=== PATIENT | female | born 1975 | race African-American/Black ===

== ENCOUNTER 2019-03-18 23:26 | Emergency (ER) | payer MEDICAID ==
[2019-03-18] MEDS ORDERED: NS 0.9% 1000 ML** 1,000 ML IV ONE (23:32)
[2019-03-18] MEDS ORDERED: Labetalol IV* 5 MG/ML 20 ML VIAL IV PUSH ONE (23:33)
--- NOTE | 2019-03-18 23:34 | ED ---
Hypertension - HPI Summary HPI Summary: This pt is a 43 y/o female, with hx of HTN, presenting to [facility] via EMS c/o headache and chest pain since afternoon of 03/18/19. Pt notes she is visiting her sister and family and came to [place] from [place] on 03/13/19. She reports she forgot her antihypertensive medications in [place] and has not been taking them since then. She is unable to remember the name of her medication but starts with "N" and is 30 mg. Pt states associated symptoms of neck pain, nausea. She reports her symptoms worsened tonight and decided to call 911. Denies abd pain. EMS administered aspirin but pt vomited. EMS then gave the pt nitroglycerin and zofran. Per EMS, blood pressure of 186/90 [employer]. Pt currently reports feeling better. Pt is allergic to lisinopril. - History of Current Complaint Stated Complaint: CHEST PAIN PER EMS Hx Obtained From: Patient Hx Last Menstrual Period: last week Onset/Duration: Started Hours Ago, Still Present Timing: Lasting Hours Reported Blood Pressure Prior To Arrival: 186/90 Aggravating Factor(s): Nothing Alleviating Factor(s): Nothing Associated Signs & Symptoms: Chest Pain, Headaches, Pain - neck pain, Other: - POSITIVE: nausea and vomiting. Related Hx: Rx Non-Compliance - since 03/13/19 - Allergies/Home Medications Allergies/Adverse Reactions: Allergies Allergy/AdvReac Type Severity Reaction Status Date / Time lisinopril Allergy Severe Swelling Verified 03/18/19 23:39 Home Medications: Home Medications Aspirin 325 MG TAB* 325 mg PO DAILY 03/18/19 [History Confirmed 03/18/19] PMH/Surg Hx/FS Hx/Imm Hx Endocrine/Hematology History: Denies: Hx Anticoagulant Therapy, Hx Diabetes, Hx Thyroid Disease Cardiovascular History: Reports: Hx Hypertension Respiratory History: Denies: Hx Asthma, Hx Chronic Obstructive Pulmonary Disease (COPD) GI History: Denies: Hx Ulcer Infectious Disease History: Denies: Hx Hepatitis, Hx Human Immunodeficiency Virus (HIV), Traveled Outside the [place] in Last 30 Days - Family History Known Family History: Negative: Cardiac Disease, Hypertension, Diabetes - Social History Alcohol Use: None Substance Use Type: Reports: None Smoking Status (MU): Never Smoked Tobacco Review of Systems Negative: Fever, Chills Positive: Chest Pain Positive: Vomiting, Nausea. Negative: Abdominal Pain Musculoskeletal: Other - POSITIVE: neck pain Positive: Headache All Other Systems Reviewed And Are Negative: Yes Physical Exam - Summary Physical Exam Summary: Appearance: Well-nourished, Anxious appearing lying on the stretcher in no acute distress. Skin: Warm, dry, no obvious rash Eyes: sclera anicteric, no conjunctival pallor ENT: mucous membranes moist, pharynx appears normal Neck: Supple, nontender Respiratory: Clear to auscultation, no signs of respiratory distress Cardiovascular: Normal S1, S2. No murmurs. Normal distal pulses in tibial and radial bilaterally. Abdomen: Soft, nontender, normal active bowel sounds present Musculoskeletal: Normal, Strength/ROM Intact Neurological: A&Ox3, awake and alert, mentation is normal, speech is fluent and appropriate Psychiatric: affect is normal, does not appear anxious or depressed Triage Information Reviewed: Yes Vital Signs Reviewed: Yes - [place] Coma Scale Best Eye Response: 4 - Spontaneous Best Motor Response: 6 - Obeys Commands Best Verbal Response: 5 - Oriented Coma Scale Total: 15 Diagnostics - Laboratory Result Diagrams: 03/18/19 23:44 03/18/19 23:44 Lab Statement: Any lab studies that have been ordered have been reviewed, and results considered in the medical decision making process. - CT Brain CT CT Interpretation Completed By: Radiologist Summary of CT Findings: IMPRESSION: No acute intracranial findings or hemorrhage. Dr. Najera has reviewed this report. - EKG 23:33 Cardiac Rate: NL - at 70 bpm EKG Rhythm: Sinus Rhythm Summary of EKG Findings: Sinus rhythm at 70 bpm. Probable left ventricular hypertrophy. Normal EKG otherwise. Hypertension Course/Dx - Course Assessment/Plan: Pt is a 43 y/o female, with hx of HTN, presenting to [facility] via EMS c/o headache and chest pain since afternoon of 03/18/19. Pt states associated symptoms of neck pain, nausea. Pt has not taken her antihypertensive mediations since 03/13/19 because she forgot them at home in [place]. Test results unremarkable except for WBC of 12.5. Brain CT is negative for an intracranial finding of hemorrhage. In the ED course the pt was given IV fluids , labetalol, Ativan, Nifedipine. Pt will be discharged home with a prescription for Nifedipine. - Diagnoses Provider Diagnoses: Hypertensive crisis Discharge - Sign-Out/Discharge Documenting (check all that apply): Patient Departure - Discharge home Patient Received Moderate/Deep Sedation with Procedure: No - Discharge Plan Condition: Improved Disposition: HOME Prescriptions: NIFEdipine ER TAB* [Procardia Xl TAB*] 30 mg PO DAILY #30 tab.xl Patient Education Materials: Hypertensive Crisis (ED) Referrals: No Primary Care Phys,NOPCP [Primary Care Provider] - - Billing Disposition and Condition Condition: IMPROVED Disposition: Home - Attestation Statements Document Initiated by Scribe: Yes Documenting Scribe: Urmila Rosa Provider For Whom Hiram is Documenting (Include Credential): Scott Najera MD Scribe Attestation: Urmila Wang scribed for Scott Najera MD on 03/19/19 at 1905. Scribe Documentation Reviewed: Yes Provider Attestation: The documentation as recorded by the Urmila lobo accurately reflects the service I personally performed and the decisions made by me, Scott Najera MD Status of Scribe Document: Viewed
[2019-03-18] MEDS ORDERED: LORazepam INJ* 2 MG/ML 1 ML VIAL IV PUSH ONE (23:45)
[2019-03-18] MEDS ORDERED: Lorazepam PYXIS KEY PRN (23:45)
[2019-03-18 23:50] LABS: ABS Basophils 0.1 10^3/ul (0-0.2); ABS Eosinophils 0.1 10^3/ul (0-0.6); ABS Lymphocytes 2.1 10^3/ul (1.0-4.8); ABS Monocytes 0.5 10^3/ul (0-0.8); ABS Neutrophils 9.8 10^3/ul (1.5-7.7); Eosinophil % 0.8 %; Hematocrit 38 % (35-47); Hemoglobin 12.4 g/dL (12.0-16.0); Lymphocyte % 16.5 %; Mean Corpuscular HGB Conc 33 g/dL (31-36); Mean Corpuscular Hemoglobin 27 pg (27-31); Mean Corpuscular Volume 83 fL (80-97); Mean Platelet Volume 8.8 fL (7.4-10.4); Platelet Count 236 10^3/uL (150-450); Red Blood Count 4.57 10^6 /uL (3.70-4.87); Red Cell Distribution Width 15 % (10-15); White Blood Count 12.5 10^3/uL (3.5-10.8)
[2019-03-19 00:08] LABS: ALT 17 U/L (7-52); AST 16 U/L (13-39); Albumin 3.8 g/dL (3.2-5.2); Albumin/Globulin Ratio 1.3 (1-3); Alkaline Phosphatase 80 U/L (34-104); Anion Gap 8 mmol/L (2-11); BUN/Creatinine Ratio 16.3 (8-20); Blood Urea Nitrogen 15 mg/dL (6-24); CO2 Carbon Dioxide 22 mmol/L (22-32); Calcium 9.1 mg/dL (8.6-10.3); Chloride 108 mmol/L (101-111); EGFR African American 79.9 (>60); Glucose 113 mg/dL (70-100); Potassium 3.5 mmol/L (3.5-5.0); Sodium 138 mmol/L (135-145); Total Protein 6.8 g/dL (6.4-8.9)
[2019-03-19 00:15] LABS: HCG Pregnancy < 0.60 mIU/mL
[2019-03-19 00:29] LABS: Urine Bacteria 2+ (Absent); Urine Red Blood Cell 2+(6-10/hpf) (Absent); Urine Squamous Epithelial Cell Present (Absent); Urine White Blood Cell Trace(0-5/hpf) (Absent)
[2019-03-19 00:39] LABS: Urine Appearance Cloudy; Urine Bilirubin Negative (Negative); Urine Blood 1+ (Negative); Urine Color Yellow; Urine Glucose Negative (Negative); Urine Ketones Trace (Negative); Urine Nitrite Negative (Negative); Urine Protein Negative (Negative); Urine Specific Gravity 1.016 (1.010-1.030); Urine Urobilinogen Negative (Negative)
[2019-03-19] MEDS ORDERED: NIFEdipine ER TAB* 30 MG PO ONE (04:19)
[2019-03-19 05:09] VITALS: BP 169/97
== END 2019-03-19 05:08 | disposition home or self-care (01) ==
LOC: ED 23:26
DX: I16.9 Hypertensive crisis, unspecified (principal); R07.89 Other chest pain; R11.2 Nausea with vomiting, unspecified; M54.2 Cervicalgia; Z79.82 Long term (current) use of aspirin; Z88.8 Allergy status to other drugs, medicaments and biological substances
CPT/HCPCS: 36415; 70450; 80053; 81003; 81015; 83605; 84702; 85025; 87086; 93005; 96361; 96374; 96375; 99283; A9270-GY; J2060